=== PATIENT | male | born 1985 | race Caucasian/White ===

== ENCOUNTER 2016-11-06 20:07 | Emergency (ER) | payer MEDICAID, OTHER ==
[~2016-11-06] VITALS: Ht 180.3 cm; Wt 63.0 kg
[~2016-11-06 20:07] MED LIST: ONDA4TAB7 PO; OSEL75 PO
--- NOTE | 2016-11-06 20:52 | PD ---
HPI Chief Complaint: Laceration/Skin Injury Time Seen by Provider: 20:47 Travel History International Travel<30 days: No Contact w/Intl Traveler<30days: No Traveled to known affect area: No History of Present Illness HPI 31-year-old [id number] white male presents to emergency Department with complaints of a laceration to his left middle finger which occurred at work today. He states that he was moving a water cooler when it slipped and his hand causing a laceration to his left middle finger distal phalanx. He has not had a tetanus shot over 5 years. It has persistently bled since the injury. He denies any numbness, tingling or weakness. He states that he continued to work. He came home had dinner with his and came in this evening to have the bleeding addressed.. PFSH Past Medical History Medical History: Denies Significant Hx Tetanus Vaccination: > 5 Years Past Surgical History Surgical History: No Previous Surgery Social History Alcohol Use: Yes Tobacco Use: No Allergies-Medications (Allergen,Severity, Reaction): Coded Allergies: No Known Allergies (Verified , 11/06/16) Reported Meds & Prescriptions Reported Meds & Active Scripts Active Ondansetron Odt (Ondansetron HCl) 4 Mg Tab 4 Mg PO Q8H PRN Tamiflu (Oseltamivir Phosphate) 75 Mg Cap 75 Mg PO BID Review of Systems Except as stated in HPI: all other systems reviewed are Neg Physical Exam Narrative GENERAL: This is a well-nourished, well-developed patient, in no apparent distress. SKIN: No rashes, ecchymoses or lesions. Warm and dry. HEAD: Atraumatic. Normocephalic. EYES: PERRL, EOMI, no discharge or injection. No scleral icterus. EARS: Clear NOSE: Nasal turbinates appear normal. THROAT: Mucosa pink and moist. Airway patent. NECK: Trachea midline. supple, moves head freely. LUNGS: Clear to auscultation. CV: Regular in rhythm. ABDOMEN: Soft nontender. EXT: No clubbing cyanosis or edema. Examination of the right hand is unremarkable. The left hand reveals a avulsion laceration to the volar pad of the proximal distal phalanx of the middle finger. This area measures approximately 5 mm x 1.5 cm. The laceration avulsion goes into subcutaneous change tissues. There is venous bleeding. There is no exposure of the tendon. The provisional nature. He is able to fully extend and flex his finger without limitation. He has intact sensation Refill distally. MDM Medical Decision Making Medical Screen Exam Complete: Yes Emergency Medical Condition: Yes Medical Record Reviewed: Yes Differential Diagnosis MDM: High Differential diagnoses: Fracture, sprain, strain, dislocation, contusion, neurovascular injury Narrative Course Patient's laceration is cauterized. Tetanus immunization updated. Procedures Procedure Narrative Left middle finger skin avulsion: The fingers prepped and draped in usual sterile fashion with Betadine. Patient's given a digital block with 1% lidocaine and 0.5% Marcaine. After adequate anesthesia and electrocautery pen is used to obtain hemostasis. The base of the wound is dry now. There is no deep injury. The skin is irrigated with saline. A nonadherent dressing is applied. Diagnosis Primary Impression: left middle finger skin avulsion Patient Instructions: General Instructions Additional Instructions: Rest. Elevation. Keep clean and dry. Elevation above the heart. Keep the dressing on for the next 3 days. He may remove it after getting a moistened and perform local wound care with soap, water, Neosporin daily. Anticipate it to heal in the next 6-8 weeks. Follow-up with a medical doctor in the next 3-7 days. Return to the ER for problems. Med/Other Pt SpecificInfo: Wound Care Disposition: 01 DISCHARGE HOME Condition: Stable Francois Guillen Nov 06, 2016 20:52
[2016-11-06] MEDS ORDERED: TETANUS/DIPHTHERIA TOXOID ADULT 0.5 ML VIAL IM ONE (21:00)
[2016-11-06] MEDS ORDERED: CYCL5TAB PO (21:24)
== END 2016-11-07 04:11 | disposition home or self-care (01) ==
LOC: NEPB 20:07
DX: S61.213A Laceration without foreign body of left middle finger without damage to nail, initial encounter (principal); Z23 Encounter for immunization; F10.10 Alcohol abuse, uncomplicated
CPT/HCPCS: 64450; 90471; 90714

== ENCOUNTER 2018-01-05 16:19 | Emergency (ER) | payer OTHER ==
[~2018-01-05] VITALS: Ht 177.8 cm; Wt 63.6 kg
[~2018-01-05 16:19] MED LIST changes: +CYCL5TAB PO; -ONDA4TAB7 PO; -OSEL75 PO
[2018-01-05 16:39] VITALS: BP 150/73; PULSE 96; RESP 18; TEMP 98.3; O2SAT 100
[2018-01-05] MEDS ORDERED: PROPARACAINE HCL 0.5% OPHT SOLN 15 ML BTL EACH EYE ONE (17:00)
--- NOTE | 2018-01-05 17:12 | PD ---
HPI Chief Complaint: Foreign Body Time Seen by Provider: 17:03 Travel History International Travel<30 days: No Contact w/Intl Traveler<30days: No Traveled to known affect area: No History of Present Illness HPI 32-year-old male presents for evaluation of foreign body sensation in the lateral left eye. He reports that at 2 PM today he was at work and someone was chipping concrete and he felt like a piece of concrete when into his left eye. He notes foreign body sensation and irritation of the lateral aspect left eye, worse with movement of the eye. Last tetanus vaccination within 5 years. No other complaints. [facility] Social History Alcohol Use: Yes Tobacco Use: Yes Allergies-Medications (Allergen,Severity, Reaction): Coded Allergies: No Known Allergies (Verified Adverse Reaction, Unknown, 01/05/18) Reported Meds & Prescriptions Reported Meds & Active Scripts Active Polytrim Opth Drops (Polymyxin/Trimethoprim Sulfate) 10,000-0.1 Unit/Ml-% Soln 1 Drop LEFT EYE Q6HR 7 Days Reported Flexeril (Cyclobenzaprine HCl) 5 Mg Tab 5 Mg PO DIRECTED Review of Systems Eyes: Positive: Foreign Body Sensation, Pain, Tearing Physical Exam Narrative GENERAL: GENERAL: Well-nourished male in no acute distress SKIN: Warm and dry. HEAD: Atraumatic. Normocephalic. EYES: Pupils equal and round reactive to light extraocular muscles are intact. Upper eyelid was everted with no evidence of retained foreign body. Wood's lamp was performed revealing an area of increased corneal uptake left eye not overlying the pupil at the 2 o'clock position. Negative Ryanne's. ENT: No nasal bleeding or discharge. Mucous membranes pink and moist. Data Data Last Documented VS Vital Signs Date Time Temp Pulse Resp B/P (MAP) Pulse Ox O2 Delivery O2 Flow Rate FiO2 01/05/18 16:39 98.3 96 18 150/73 (98) 100 Orders Orders Proparacaine 0.5% Opth Soln (Alcaine 0.5 (01/05/18 17:00) Polymyxin/Trimethop Opht Soln (Polytrim (01/05/18 17:30) MDM Medical Decision Making Medical Screen Exam Complete: Yes Emergency Medical Condition: Yes Medical Record Reviewed: Yes Differential Diagnosis Corneal abrasion, ruptured globe, retained foreign body Narrative Course Examination reveals a small corneal abrasion left eye 2 o'clock position on overlying the pupil. The patient will be discharged on Polytrim ophthalmic solution. Diagnosis Primary Impression: Corneal abrasion Additional Instructions: Medication as prescribed. Take Tylenol or Motrin for pain. Return for any acutely new or worsening symptoms. Med/Other Pt SpecificInfo: Prescription(s) given Scripts Polymyxin B-Trimethoprim Opth Drops (Polytrim Opth Drops) 10,000-0.1 Unit/Ml-% Soln 1 DROP LEFT EYE Q6HR for Mgmt Bacterial Infection for 7 Days, #1 BOTTLE 0 Refills Prov: Tatiana Moore MD 01/05/18 Disposition: 01 DISCHARGE HOME Condition: Stable Kenji Kincaid Jan 05, 2018 17:12
[2018-01-05] MEDS ORDERED: POLY10O LEFT EYE (17:19)
[2018-01-05] MEDS ORDERED: POLYMYXIN/TRIMETHOPRIM OPHT SOLN 10 ML BTL LEFT EYE ONE (17:30)
== END 2018-01-05 17:50 | disposition home or self-care (01) ==
LOC: NEPK 16:19
DX: S05.02XA Injury of conjunctiva and corneal abrasion without foreign body, left eye, initial encounter (principal); X58.XXXA Exposure to other specified factors, initial encounter
CPT/HCPCS: 99283